=== PATIENT | female | born 1935 | race Hispanic/Latino ===

== ENCOUNTER 2019-01-17 10:45 | Observation (INO) | payer OTHER, MEDICARE ==
[2019-01-17] MEDS ORDERED: 1/2 NORMAL SALINE 1,000 ML IV SCH (11:30)
[2019-01-17 12:37] LABS: BASOPHILS % (AUTO) 0.5 % (0.0-5.0); EOSINOPHILS % (AUTO) 1.9 % (0.0-8.0); HEMATOCRIT 33.9 % (36-48); MEAN CORPUSCULAR HEMOGLOBIN 31.5 pg (27.0-33.0); MEAN CORPUSCULAR HGB CONC 33.5 g/dL (32.0-36.0); MEAN CORPUSCULAR VOLUME 94.1 fL (79-99); MONOCYTES % (AUTO) 7.6 % (3.0-13.0); NUCLEATED RED BLOOD CELLS 0.2 % (0.0-0.19); PLATELET COUNT (AUTO) 172 K/uL (130-400); RED BLOOD CELL COUNT(AUTO) 3.61 MIL/uL (4.00-5.50); RED CELL DISTRIBUTION WIDTH 13.3 % (11.0-15.5); WHITE BLOOD COUNT (AUTO) 3.6 K/uL (4.8-10.8)
[2019-01-17] MEDS ORDERED: DIATR MEGLU/DIATRIZOATE SODIUM 30 ML BOTTLE ONE ×2 (12:50→16:04)
[2019-01-17 13:03] LABS: CREATININE 0.8 mg/dL (0.5-1.5); POTASSIUM 4.5 mmol/L (3.5-5.1)
[2019-01-17 13:08] LABS: ALBUMIN 3.9 g/dL (3.5-5.0); BILIRUBIN,DIRECT 0.1 mg/dL (0.0-0.3); BILIRUBIN,TOTAL 0.4 mg/dL (0.2-1.0); TOTAL PROTEIN, SERUM 6.5 g/dL (6.0-8.3)
[2019-01-17] MEDS ORDERED: 1/2 NORMAL SALINE 1,000 ML IV ONE (15:36)
[2019-01-17] MEDS ORDERED: IOHEXOL-350 75 ML VIAL IV ONE (15:55)
--- NOTE | 2019-01-17 20:45 | NUR ---
INFORMED BY MONIK SUAZO (DAUGHTER), THAT THEY WOULD LIKE TO BE SEEN OUTPT. DR. LANDRY NOTIFIED OF CT RESULTS AND OF PT'S REQUEST. INSTRUCTED TO GIVE PT AN ENEMA AND TO DC IF PT FELT OK AFTERWARDS. ENEMA ADMINISTERED WITH IMMEDIATE RESULTS. PT STATES SHE FEELS RELIEF FROM ABDOMINAL PAIN. DR. [place]ER[place] JOEL NOTIFIED OF CONSULT AND PT'S REQUEST TO FOLLOW UP IN OFFICE. CT ABD RESULTS READ TO . STATED OK TO DC PT AFTER A 2ND ENEMA AND TO F/U IN OFFICE THIS WEEK.
[2019-01-17 23:00] VITALS: BP 139/68
--- NOTE | 2019-01-17 23:00 | NUR ---
DC NOTE 2ND ENEMA ADMINISTERED INSTRUCTED BY GI . PT WITH A LARGE BM; STATES ABD RELIEF FROM PAIN. DENIES N/V AND NO FEVER. DR. LANDRY AND DR. JOEL NOTIFIED. INSTRUCTED TO DC PT. PT AAO X3 DENIES PAIN OR DISTRESS. VS WNL. IV REMOVED WITH TIP INTACT. TEACHING PROVIDED ON BISACODYL AND MIRALAX. DAUGHTER STATES WILL SENIOR QUALITATIVE [employer]S AFTER DC AND WILL SCHEDULE APPT WITH GI IN AM. PT ESCORTED TO PRIVATE CAR VIA WHEELCHAIR IN STABLE CONDITION.
== END 2019-01-17 23:29 | disposition home or self-care (01) ==
LOC: EDH 10:45 → EDHIP 11:34 → 3BH 22:06 → EDHIP 22:10
PROVIDERS: ADMIT Internal Medicine; ATTEND Internal Medicine
DX: R10.32 Left lower quadrant pain (principal); I13.2 Hypertensive heart and chronic kidney disease with heart failure and with stage 5 chronic kidney disease, or end stage renal disease; N18.6 End stage renal disease; I50.9 Heart failure, unspecified; E11.21 Type 2 diabetes mellitus with diabetic nephropathy; E11.22 Type 2 diabetes mellitus with diabetic chronic kidney disease; E11.319 Type 2 diabetes mellitus with unspecified diabetic retinopathy without macular edema; E11.52 Type 2 diabetes mellitus with diabetic peripheral angiopathy with gangrene; E78.5 Hyperlipidemia, unspecified; H40.9 Unspecified glaucoma; I25.10 Atherosclerotic heart disease of native coronary artery without angina pectoris; I35.1 Nonrheumatic aortic (valve) insufficiency; I42.9 Cardiomyopathy, unspecified; J44.9 Chronic obstructive pulmonary disease, unspecified; F03.90 Unspecified dementia, unspecified severity, without behavioral disturbance, psychotic disturbance, mood disturbance, and anxiety; Z89.511 Acquired absence of right leg below knee; Z99.2 Dependence on renal dialysis
CPT/HCPCS: 36415; 74177; 80048; 80076; 85025; 99284; G0378 ×12; Q9963 ×2; Q9967

== ENCOUNTER 2019-02-22 10:07 | Observation (INO) | payer OTHER, MEDICARE ==
[~2019-02-22] VITALS: Ht 154.9 cm; Wt 57.3 kg
[2019-02-22] MEDS ORDERED: DEXTROSE 50%-WATER 50 ML DISP.SYRIN IV PRN (10:45)
[2019-02-22] MEDS ORDERED: ZOLPIDEM TARTRATE 5 MG TAB PO PRN (10:45)
[2019-02-22] MEDS ORDERED: 1/2 NORMAL SALINE 1,000 ML IV SCH (10:45)
[2019-02-22] MEDS ORDERED: CLONIDINE HCL 0.1 MG TABLET PO PRN (10:45)
[2019-02-22] MEDS ORDERED: GLUCAGON 1MG KIT 1 MG ML IM PRN (10:45)
[2019-02-22] MEDS ORDERED: ONDANSETRON HCL 4 MG/2 ML VIAL IVP PRN (10:45)
[2019-02-22] MEDS ORDERED: DIPHENHYDRAMINE HCL 25 MG CAPSULE PO PRN (10:45)
[2019-02-22] MEDS ORDERED: ACETAMINOPHEN 325 MG TAB PO PRN (10:45)
[2019-02-22 10:47] LABS: BASOPHILS % (AUTO) 0.7 % (0.0-5.0); EOSINOPHILS % (AUTO) 1.8 % (0.0-8.0); HEMATOCRIT 34.5 % (36-48); LYMPHOCYTES % (AUTO) 46.6 % (21.0-51.0); MEAN CORPUSCULAR HEMOGLOBIN 31.5 pg (27.0-33.0); MEAN CORPUSCULAR VOLUME 92.7 fL (79-99); MONOCYTES % (AUTO) 7.1 % (3.0-13.0); NEUTROPHILS % (AUTO) 43.8 % (40.0-77.0); NUCLEATED RED BLOOD CELLS 0.1 % (0.0-0.19); PLATELET COUNT (AUTO) 162 K/uL (130-400); RED BLOOD CELL COUNT(AUTO) 3.73 MIL/uL (4.00-5.50); RED CELL DISTRIBUTION WIDTH 13.3 % (11.0-15.5); WHITE BLOOD COUNT (AUTO) 3.5 K/uL (4.8-10.8)
[2019-02-22 10:54] LABS: CREATININE 0.8 mg/dL (0.5-1.5)
[2019-02-22] MEDS ORDERED: CEFTRIAXONE SODIUM 1 GM ONE (10:56)
[2019-02-22 10:58] LABS: ALBUMIN 4.1 g/dL (3.5-5.0); BILIRUBIN,DIRECT 0.1 mg/dL (0.0-0.3); BILIRUBIN,TOTAL 0.5 mg/dL (0.2-1.0); TOTAL PROTEIN, SERUM 6.9 g/dL (6.0-8.3)
[2019-02-22] MEDS ORDERED: METRONIDAZOLE 500MG/100ML BAG 100 ML ONE ×2 (12:12→20:04)
[2019-02-22] MEDS: INSULIN R PO SSI SQ SCH ×2 (16:30→21:00)
[2019-02-22] MEDS ORDERED: MORPHINE SULFATE 4 MG/1ML SYG IVP PRN (17:15)
[2019-02-22 20:28] VITALS: BP 133/73
--- NOTE | 2019-02-22 20:28 | NUR ---
Admission note Received pt. per abe. Daughter was with the patient. Fully awake and responsive. Confused r/t dementia. Placed in bed comfortably. VS checked and recorded. Assessment done.Oriented to room , use of call light. Policies and procedures explained. Verbalized understanding. Orders carried out. Plan of care initiated. Monitored and watched for any unusualities. Cared for and needs attended. Distress / discomfort not noted.
[2019-02-22] MEDS: METRONIDAZOLE 500MG/100ML BAG 100 ML IVPB SCH (21:23)
[2019-02-22 23:53] VITALS: BP 139/66
[2019-02-23 04:13] VITALS: BP 148/76
[2019-02-23 04:54] LABS: HEMATOCRIT 33.5 % (36-48); MEAN CORPUSCULAR HEMOGLOBIN 31.5 pg (27.0-33.0); MEAN CORPUSCULAR HGB CONC 33.7 g/dL (32.0-36.0); MEAN CORPUSCULAR VOLUME 93.5 fL (79-99); NUCLEATED RED BLOOD CELLS 0.1 % (0.0-0.19); PLATELET COUNT (AUTO) 175 K/uL (130-400); RED BLOOD CELL COUNT(AUTO) 3.59 MIL/uL (4.00-5.50); RED CELL DISTRIBUTION WIDTH 13.4 % (11.0-15.5); WHITE BLOOD COUNT (AUTO) 4.1 K/uL (4.8-10.8)
[2019-02-23 05:06] LABS: BILIRUBIN,DIRECT 0.2 mg/dL (0.0-0.3); BILIRUBIN,TOTAL 0.5 mg/dL (0.2-1.0); POTASSIUM 3.5 mmol/L (3.5-5.1); TOTAL PROTEIN, SERUM 6.6 g/dL (6.0-8.3)
[2019-02-23] MEDS: METRONIDAZOLE 500MG/100ML BAG 100 ML IVPB SCH (06:09)
[2019-02-23] MEDS: INSULIN R PO SSI SQ SCH ×2 (06:37→11:30)
[2019-02-23 07:41] VITALS: BP 159/79
[2019-02-23] MEDS ORDERED: PANTOPRAZOLE SODIUM 40 MG TABLET.DR PO SCH (09:00)
[2019-02-23] MEDS ORDERED: CEFTRIAXONE SODIUM 1 GM IVP SCH (09:00)
--- NOTE | 2019-02-23 11:05 | NUR ---
CM NOTES CHART REVIEWED. PT DCD IN OBS STATUS- NO TRIGGERS FOR CM; NO CONCERNS VOICED BY PT TO RN OR BY RM TO CM.
[2019-02-23 11:11] VITALS: BP 124/69
--- NOTE | 2019-02-23 12:30 | NUR ---
PT D/C WITH EDUCATION USING TEACH BACK SATISFACTORILY IV REMOVED , CATHETER INTACT PT DENIES SOB OR CHEST PAIN
== END 2019-02-23 13:46 | disposition home or self-care (01) ==
LOC: EDH 10:07 → EDHIP 10:35 → 4CH 20:28
PROVIDERS: ADMIT Internal Medicine; ATTEND Internal Medicine
DX: R10.9 Unspecified abdominal pain (principal); I12.9 Hypertensive chronic kidney disease with stage 1 through stage 4 chronic kidney disease, or unspecified chronic kidney disease; N18.9 Chronic kidney disease, unspecified; E11.319 Type 2 diabetes mellitus with unspecified diabetic retinopathy without macular edema; E11.22 Type 2 diabetes mellitus with diabetic chronic kidney disease; E78.5 Hyperlipidemia, unspecified; J44.9 Chronic obstructive pulmonary disease, unspecified; F03.90 Unspecified dementia, unspecified severity, without behavioral disturbance, psychotic disturbance, mood disturbance, and anxiety; Z79.899 Other long term (current) drug therapy
CPT/HCPCS: 36415 ×2; 74176; 80048; 80053; 80076; 82150; 82948 ×3; 83690; 85025; 85027; 96365; 96366; 96375; 99284; G0378 ×27; J0696 ×2; J3490 ×3; Q0163; C9113

== ENCOUNTER → 2019-06-06 | Outpatient (CLI) | payer OTHER, MEDICARE ==
[~2019-06-06] MED LIST: IOHEXOL 350 MG/ML 100ML INFUS..BTL IV ONE
== END | disposition home or self-care (01) ==
LOC: RAH 09:54
PROVIDERS: ATTEND Internal Medicine
DX: K59.00 Constipation, unspecified (principal)
CPT/HCPCS: 74177; Q9967

== ENCOUNTER → 2021-02-20 | Outpatient (CLI) | payer OTHER, MEDICARE | END | disposition home or self-care (01) | LOC: RAH 08:56 | PROVIDERS: ATTEND Urology | DX: R31.29 Other microscopic hematuria (principal); I51.7 Cardiomegaly; I31.3 Pericardial effusion (noninflammatory); K59.00 Constipation, unspecified; M47.819 Spondylosis without myelopathy or radiculopathy, site unspecified; Z90.711 Acquired absence of uterus with remaining cervical stump | CPT/HCPCS: 74176 ==

== ENCOUNTER → 2021-04-01 | Outpatient (CLI) | payer OTHER, MEDICARE | END | disposition home or self-care (01) | LOC: RAH 09:09 | PROVIDERS: ATTEND Internal Medicine Gastroenterology | DX: I31.3 Pericardial effusion (noninflammatory) (principal); K59.00 Constipation, unspecified; R63.4 Abnormal weight loss; R19.04 Left lower quadrant abdominal swelling, mass and lump; R10.9 Unspecified abdominal pain | CPT/HCPCS: 74178; Q9967 ==

== ENCOUNTER → 2021-05-13 | Outpatient (CLI) | payer OTHER, MEDICARE | END | disposition home or self-care (01) | LOC: RAH 10:46 | PROVIDERS: ATTEND Urology | DX: R14.0 Abdominal distension (gaseous) (principal); K59.39 Other megacolon; K56.41 Fecal impaction | CPT/HCPCS: 74176 ==

== ENCOUNTER → 2021-09-10 | Outpatient (CLI) | payer OTHER, MEDICARE | END | disposition home or self-care (01) | LOC: RAH 10:20 | PROVIDERS: ATTEND Urology | DX: S32.010A Wedge compression fracture of first lumbar vertebra, initial encounter for closed fracture (principal); X58.XXXA Exposure to other specified factors, initial encounter; Y93.89 Activity, other specified; Y92.89 Other specified places as the place of occurrence of the external cause; Y99.8 Other external cause status | CPT/HCPCS: 74176 ==